=== PATIENT | male | born 1990 | race Caucasian/White ===

== ENCOUNTER 2017-11-07 04:34 | Emergency (ER) | payer SELFPAY ==
[~2017-11-07] VITALS: Ht 175.3 cm; Wt 75.0 kg
[2017-11-07 04:43] VITALS: BP 119/72; PULSE 76; RESP 16; TEMP 98.2; O2SAT 97
--- NOTE | 2017-11-07 04:55 | PD ---
HPI Chief Complaint: Alcohol/Drug Intoxication Time Seen by Provider: 04:52 Travel History International Travel<30 days: No Contact w/Intl Traveler<30days: No Traveled to known affect area: No History of Present Illness HPI 27-year-old male presents under [place] act initially by the police department. Apparently the patient was found trying to enter her home that was not his. Patient reports that this evening he was consuming a large amount of alcohol at a concert on each side. He then went to a bar with friends and the next thing that he remembers he is in this hospital. He reports that he has been drinking heavily. He is complaining of an abrasion/pain to the anterior left tibia and he does not recall how he injured it. He does not believe that he has any other injuries at this time but history is limited by intoxication. [facility] Social History Alcohol Use: Yes Tobacco Use: Yes Allergies-Medications (Allergen,Severity, Reaction): Coded Allergies: No Known Allergies (Unverified , 11/07/17) Reported Meds & Prescriptions Reported Meds & Active Scripts Active No Active Prescriptions or Reported Medications Review of Systems ROS Limitations: Intoxication Except as stated in HPI: all other systems reviewed are Neg Physical Exam Exam Limitations: Intoxication Narrative GENERAL: Well-developed well-nourished male in no acute distress SKIN: Warm and dry. Abrasions to the anterior left kay. HEAD: Atraumatic. Normocephalic. EYES: Pupils equal and round. No scleral icterus. No injection or drainage. ENT: No nasal bleeding or discharge. Mucous membranes pink and moist. NECK: Trachea midline. No JVD. CARDIOVASCULAR: Regular rate and rhythm. No murmur appreciated. RESPIRATORY: No accessory muscle use. Clear to auscultation. Breath sounds equal bilaterally. GASTROINTESTINAL: Abdomen soft, non-tender, nondistended. Hepatic and splenic margins not palpable. MUSCULOSKELETAL: No obvious deformities. Tender to palpation anterior left mid kay. No obvious bony deformities. No tenderness to palpation of left ankle or the left knee joints. NEUROLOGICAL: Awake and alert. No obvious cranial nerve deficits. Motor grossly within normal limits. Slurred speech Data Data Last Documented VS Vital Signs Date Time Temp Pulse Resp B/P (MAP) Pulse Ox O2 Delivery O2 Flow Rate FiO2 11/07/17 04:43 98.2 76 16 119/72 (88) 97 Orders Orders Tetanus/Diphtheria Tox Adult (Tetanus/Di (5/26/18 05:00) Tibia/Fibula (Ap/Lat) (11/07/17 ) Ct Brain W/O Iv Contrast(Rout) (11/07/17 ) MDM Medical Decision Making Medical Screen Exam Complete: Yes Emergency Medical Condition: Yes Medical Record Reviewed: Yes Differential Diagnosis Alcohol intoxication, closed head injury, intracranial hemorrhage Narrative Course CT the brain, x-ray of the left tibia-fibula been ordered. Tetanus status updated. Imaging studies reveal no acute thyromegaly. The patient will remain here until he is clinically sober and then he will be discharged. Diagnosis Primary Impression: Alcohol intoxication Med/Other Pt SpecificInfo: No Change to Meds Scripts No Active Prescriptions or Reported Meds Disposition: 01 DISCHARGE HOME Condition: Stable Thong Randhawa November 07, 2017 04:55
[2017-11-07] MEDS ORDERED: TETANUS/DIPHTHERIA TOXOID ADULT 0.5 ML VIAL IM ONE (05:00)
--- NOTE | 2017-11-07 05:21 | RADRPT ---
EXAM DATE: 11/07/2017 5:10 AM EDT AGE/SEX: 27 years / Male INDICATIONS: Patient had a scrape on his leg, and was unaware of how it got there. Patient states th ere is no pain. CLINICAL DATA: This is the patient's initial encounter. Patient reports that signs and symptoms have been present for 1 day and indicates a pain score of 0/10. MEDICAL/SURGICAL HISTORY: Hypertension. None. COMPARISON: No prior [place] exams available for comparison. FINDINGS: Bony structures are intact and in normal alignment. Osseous density is normal. Soft tissues are unre markable. No radiopaque foreign bodies seen. CONCLUSION: Radiographic appearance of the left leg is within normal limits. Electronically signed by: Randell Moctezuma MD 11/07/2017 5:20 AM EDT
--- NOTE | 2017-11-07 05:25 | RADRPT ---
EXAM DATE: 11/07/2017 5:17 AM EDT AGE/SEX: 27 years / Male INDICATIONS: Altered mental status; ETOH. CLINICAL DATA: This is the patient's initial encounter. Patient reports that signs and symptoms have been present for 1 day and indicates a pain score of Nonresponsive. MEDICAL/SURGICAL HISTORY: None. None. RADIATION DOSE: 56.35 CTDI (mGy) COMPARISON: No prior [place] exams available for comparison. TECHNIQUE: CT of the head without contrast. Using automated exposure control and adjustment of the mA and/or kV according to patient size, radiation dose was kept as low as reasonably achievable to ob tain optimal diagnostic quality images. FINDINGS: Cerebrum: The ventricles are normal for age. No evidence of midline shift, mass lesion, hemorrhage or acute infarction. No extraaxial fluid collections are seen. Posterior Fossa: The cerebellum and brainstem are intact. The 4th ventricle is midline. The cerebe llopontine angle is unremarkable. Extracranial: There is mucoperiosteal thickening of the ethmoid and frontal air cells. Skull: The calvaria is intact. No evidence of skull fracture. CONCLUSION: 1. No acute intracranial abnormality. 2. Sinusitis. Electronically signed by: Randell Moctezuma MD 11/07/2017 5:24 AM EDT
[2017-11-07 09:20] VITALS: BP 124/68
== END 2017-11-07 09:26 | disposition home or self-care (01) ==
LOC: NEPD 04:34
DX: F10.129 Alcohol abuse with intoxication, unspecified (principal); Z72.0 Tobacco use
CPT/HCPCS: 70450; 73590